=== PATIENT | female | born 1940 | race Caucasian/White ===

== ENCOUNTER 2024-10-10 14:17 | Outpatient (CLI) | payer MEDICARE, BC, SELFPAY ==
--- NOTE | ~2024-10-10 | DEXA_ITS ---
Bone Density Report Name: LAURA VERMA Age: 84 Sex: Female Ethnicity: White Date of : 1940 Indication: postmenopausal; screening for osteoporosis; parental hip fracture; height loss; Referring Provider: EVERETT, YARI Study: Bone densitometry was performed. Exam Date: October 10, 2024 Accession number: [id number] Bone Density: Region BMD T-score Z-score Classification AP Spine(L1-L4) 1.075 0.3 3.1 Normal Femoral Neck (Left) 0.769 -0.7 1.8 Normal Total Hip (Left) 0.863 -0.6 1.7 Normal Femoral Neck (Right) 0.654 -1.8 0.8 Osteopenia Total Hip (Right) 0.748 -1.6 0.7 Osteopenia Total Hip Mean 0.806 -1.1 1.2 Osteopenia World Health Organization criteria for BMD impression classify patients as: Normal (T-score at or above -1.0), Osteopenia (T-score between -1.0 and -2.5), or Osteoporosis (T-score at or below -2.5). 10-year Fracture Risk(1): Major Osteoporotic Fracture 24% Hip Fracture 15% Reported Risk Factors: [place] (), Neck BMD=0.654, BMI=35.9, parental fracture (1) FRAX(R) Version 3.08. Fracture probability calculated for an untreated patient. Fracture probability may be lower if the patient has received treatment. Clinical Information Provided by Patient: Parent has had a hip fracture Has used the following medications: Vitamin D Patient maximum height was 63 Menopause Age: 56 No regular weight bearing exercise Drinks caffeinated beverages Onset of menses at age 8 Number of children 3 Impression: The patient has low bone mass, based on the Right Femoral Neck T-score. The patient has an estimated ten-year risk of hip fracture of 15% and an estimated ten-year risk of major fracture of 24%, based on the WHO FRAX algorithm. The patient has risk factors, including: parental hip fracture. Discussion: BONE DENSITY IS LOW AT ONE OR MORE SKELETAL SITES. THE PATIENT'S BMD AND CLINICAL RISK FACTORS CONTRIBUTE TO THIS PATIENT'S HIGH RISK OF FRACTURE. This patient's lowest T-score is low at one or more skeletal sites. It meets the World Health Organization's (WHO) criteria for ?low bone mass? (T-score between -1.0 and -2.5). The patient's 10-year risk of hip fracture and 10 year risk of a major osteoporotic fracture as calculated by FRAX exceeds the threshold where pharmacological therapy is recommended by the National Osteoporosis Foundation (NOF). However, all treatment decisions require clinical judgment and consideration of individual patient factors, including patient preferences, comorbidities, previous drug use, risk factors not captured in the FRAX model (e.g., frailty, falls, vitamin D deficiency, increased bone turnover, interval significant decline in bone density) and possible under or overestimation of fracture risk by FRAX. The patient should follow a healthful lifestyle (good nutrition with adequate calcium and vitamin D, and appropriate weight-bearing exercise). Follow-Up: Consider a repeat BMD and Vertebral Fracture Assessment (VFA) exam in 2 years or sooner if medically necessary, to reassess this patient's status. Reported by: MARIVEL on 10/10/2024 3:09:00 PM. Reviewed, dictated and finalized at location A.
--- OUTSIDE RECORDS SUMMARY | 2024-10-10 16:13 | XMS_ITS | Clinical Summary ---
Author Organization [facility] Address [address] [place] [address] Care Team Providers Care Primary Teaching Assistant Name Role Phone Harshal Mcclain MD Unavailable [phone] Miguelina Romero RN Unavailable Unavailable Galdino Maldonado MD Primary Care Provider Source Comments [facility],non-owned Affiliates and Associated Physician Practices is amultiple site organization consisting of ambulatory clinics and hospital sitesin [place], [place], [place] and [place]. This disclosure is being madepursuant to the Care Everywhere program and may not contain all information available regarding this patient. Last updated 18.[facility] Allergies Active Allergy Reactions Criticality Noted Date Comments Prednisone 07/17/2010 I get wacky Medications * Be aware that medications may not be up to date on this document. Alwaysverify current medications with the patient. vitamin D, cholecalciferol , 2000 UNIT tablet Take 1 Tab by mouth once daily. 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 Gastroesophageal reflux disease without esophagi tis 04/28/2016 Gastritis, bile acid reflux 04/25/2015 Tachycardia 01/02/2015 Vitamin D deficiency 04/06/2013 Declined flu shot 04/02/2011 Other screening mammogram ord'd 07/17/10, 10/08/11 , 07/17/2010 Procedure refused 03/20/2010 Overview (03/20/2010): Declined flu shot Noncompliance with medication regimen 11/21/2009 Osteopenia -1.0 07/25/2009 07/26/2009 Vaccination not carried out because of patient r efusal 03/06/2009 Overview (03/06/2009): Declined flu shot Depression, endogenous 05/29/2008 Insomnia 05/29/2008 Mixed hyperlipidemia 05/29/2008 Screen for Colon Cancer 1993 , 1995, rec'd 03/2008 (Sarahi), 03/20/10 05/29/2008 Encounters Date Type Department Care Team Description 09/21/2024 Patient Outreach [facility] - Care Coordination [address] [place] [address] Matilde Tang Outreach Preventive Care from Last 3 Months Immunizations Immunization Administration Dates Next Due MODERNA SARS-COV-2 COVID-19 VACCINE 0.25ML 01/01,05/20/2021 PNEUMOCOCCAL PPSV23 04/02/2011 Pneumococcal Pcv13 Conj 10/25/2014 Family History Medical History Relation Name Comments Heart Disease Father Relation Name Status Comments Father Social History Tobacco Use Types Packs/Day Years Used Date Smoking Tobacco: Former Cigarettes 0.8 58 0 12/25/1956 - 12/25/2014 Smokeless Tobacco: Never Tobacco Cessation:Counseling Given: No Alcohol Use Standard Drinks/Week Comments No 0 (1 standard drink = 0.6 oz pur e alcohol) Comments No Sex and Gender Information Value Date Recorded Sex Assigned at Not on file Legal Sex Female 6:41 AM TRACTOR TRAILER TECHNICIAN Gender Identity Not on file Sexual Orientation Not on file Last Filed Vital Signs Vital Sign Reading Time Taken Comments Blood Pressure 124/82 05/04/2019 10:32 AM TRACTOR TRAILER TECHNICIAN Pulse 72 05/04/2019 10:32 AM TRACTOR TRAILER TECHNICIAN Temperature 37.1 C (98.7 F) 01/03/2015 4:05 PM CDT Respiratory Rate 14 05/04/2019 10:32 AM TRACTOR TRAILER TECHNICIAN Oxygen Saturation 90% 01/03/2015 4:05 PM CDT Inhaled Oxygen Concentration - - Weight 92.5 kg (204 lb) 05/04/2019 10:32 AM TRACTOR TRAILER TECHNICIAN Height 160 cm (5' 3 ) 05/04/2019 10:32 AM TRACTOR TRAILER TECHNICIAN Body Mass Index 36.14 05/04/2019 10:32 AM TRACTOR TRAILER TECHNICIAN Plan of Treatment Health Maintenance Due Date Last Done Comments DTAP/TDAP/TD VACCINES (1 - Tdap) 1959 ZOSTER VACCINE (1 of 2) 1989 Respiratory Syncytial Virus (RSV) Vaccine Pt: or over 60 yrs (1 - 1-dose 75+ series) 2014 COVID-19 VACCINE ( season) 2024 04/24/2022, 01/01/2022, 05/20/2021, Additional history exists DEPRESSION SCREENING 06/22/2024 INFLUENZA VACCINE (Season Ended) 2025 BONE DENSITY TESTING Completed 07/25/2009 PNEUMOCOCCAL VACCINE 50+ Completed 10/25/2014, 03/22 HEPATITIS B VACCINE Aged Out No longe r eligible based on patient's age to complete this topic HIB VACCINE Aged Out No longer eligi ble based on patient's age to complete this topic HPV VACCINE Aged Out No longer eligi ble based on patient's age to complete this topic MENINGOCOCCAL (Group B) VACCINE SHARED DECISION-MAKING Aged Out No longer eligible based on patient's age to complete this topic MENINGOCOCCAL GROUPS A/C/Y/W VACCINE Aged Out No longer eligible based on patient's age to complete this topic Goals Goal Patient Goal Type Associated Problems Recent Progress Patient-Stated? Author Quit smoking / using tobacco Lifestyle On track( 016 9:12 AM CDT) No Jessica Alatorre Insurance [employer] Advance Directives * Full Code (Latest Code Status on File) Date Activated Date Inactivated Comments 01/02/2015 3:43 PM 01/03/2015 7:39 PM * Full Code Date Activated Date Inactivated Comments 01/02/2015 3:28 PM 01/02/2015 3:43 PM Care Teams Primary Teaching Assistant Relationship Specialty Start Date End Date Galdino Maldonado MD [address] [phone] PCP - General Internal Medicine 09/21/24 Harshal Mcclain MD [address] [place] [address] 02/01/10 Miguelina Romero RN [address] [place] [address] Jumpbasting Armhole Baster 01/03/15
== END 2024-10-10 14:18 | disposition home or self-care (01) ==
LOC: ANHIMG 14:20
PROVIDERS: PCP Internal Medicine; Visit Provider Internal Medicine
DX: M81.0 Age-related osteoporosis without current pathological fracture (principal); M85.89 Other specified disorders of bone density and structure, multiple sites; Z13.820 Encounter for screening for osteoporosis
CPT/HCPCS: 77080

== ENCOUNTER 2025-02-08 13:28 | Outpatient (CLI) | payer MEDICARE, BC, SELFPAY ==
--- OUTSIDE RECORDS SUMMARY | 2025-02-08 13:50 | XMS_ITS | Clinical Summary ---
Author Organization [facility] Address [address] [place] [address] Care Team Providers Care Associate Professor Of Physics Name Role Phone Harshal Mcclain MD Unavailable [phone] Miguelina Romero RN Unavailable Unavailable Galdino Maldonado MD Primary Care Provider Source Comments [facility],non-owned Affiliates and Associated Physician Practices is amultiple site organization consisting of ambulatory clinics and hospital sitesin [place], [place], [place] and [place]. This disclosure is being madepursuant to the Care Everywhere program and may not contain all information available regarding this patient. Last updated 18.[facility] Allergies Active Allergy Reactions Criticality Noted Date [...] Encounters Date Type Department Care Team Description 01/20/2025 Patient Outreach [facility] - Care Coordination [address] [place] [address] Rachel Landry Outreach Preventive Care from Last 3 Months [...] on file Legal Sex Female 6:41 AM NAIL TECHNICIAN Gender Identity Not on file Sexual Orientation Not on file Last Filed Vital Signs Vital Sign Reading Time Taken Comments Blood Pressure 124/82 05/04/2019 10:32 AM NAIL TECHNICIAN Pulse 72 05/04/2019 10:32 AM NAIL TECHNICIAN Temperature 37.1 C (98.7 F) 01/03/2015 4:05 PM CDT Respiratory Rate 14 05/04/2019 10:32 AM NAIL TECHNICIAN Oxygen Saturation 90% 01/03/2015 4:05 PM CDT Inhaled Oxygen Concentration - - Weight 92.5 kg (204 lb) 05/04/2019 10:32 AM NAIL TECHNICIAN Height 160 cm (5' 3) 05/04/2019 10:32 AM NAIL TECHNICIAN Body Mass Index 36.14 05/04/2019 10:32 AM NAIL TECHNICIAN Plan of Treatment Health Maintenance Due Date Last Done Comments DTAP/TDAP/TD VACCINES (1 - Tdap) 1958 ZOSTER VACCINE (1 of 2) 1989 Respiratory Syncytial Virus (RSV) Vaccine Pt: or over 60 yrs (1 - 1-dose 75+ series) 2014 COVID-19 VACCINE ( season) 2024 04/24/2022, 01/01/2022, 05/20/2021, Additional history exists DEPRESSION SCREENING 06/22/2024 INFLUENZA VACCINE (#1) 2025 BONE DENSITY TESTING Completed 07/25/2009 PNEUMOCOCCAL [...] 9:12 AM CDT) No Jessica Alatorre Insurance [employer] Advance Directives * Full Code (Latest Code Status on File) Date Activated Date Inactivated Comments 01/02/2015 3:43 PM 01/03/2015 7:39 PM * Full Code Date Activated Date Inactivated Comments 01/02/2015 3:28 PM 01/02/2015 3:43 PM Care Teams Associate Professor Of Physics Relationship Specialty Start Date End Date Galdino Maldonado MD [address] [phone] PCP - General Internal Medicine 09/21/24 Harshal Mcclain MD [address] [place] [address] 02/01/10 Miguelina Romero RN [address] [place] [address] Lead Manufacturing Technician 01/03/15
--- NOTE | 2025-02-08 14:15 | NEURO_ITS ---
Impression: # Complains of numbness of right hand. # Right Carpal Tunnel Syndrome. # No Ulnar Neuropathy, # Needle/EMG exam mildly neurogenic in right APB. Nerve Conduction Studies ?Stim Site NR Peak (ms) P-T Amp (?V) Site1 Site2 Delta-P (ms) Dist (cm) Rakesh (m/s) Right Median Anti Sensory (2-3nd Digit) Wrist ? 4.9 18.7 Wrist 2-3nd Digit 4.9 14.0 29 Wrist ? 5.0 11.5 Wrist 2-3nd Digit 4.9 14.0 29 Right Radial Anti Sensory (Base 1st Digit) Wrist ? 2.1 19.8 Wrist Base 1st Digit 2.1 0.0 Right Ulnar Anti Sensory (5th Digit) Wrist ? 2.2 48.1 Wrist 5th Digit 2.2 14.0 64 ?Stim Site NR Onset (ms) O-P Amp (mV) Site1 Site2 Delta-0 (ms) Dist (cm) Rakesh (m/s) Right Median Motor (Abd Poll Brev) Wrist ? 4.5 4.8 Elbow Wrist 4.6 25.0 54 Elbow ? 9.1 4.9 Right Ulnar Motor (Abd Dig Minimi) Wrist ? 3.0 4.7 A Elbow Wrist 4.0 26.0 65 A Elbow ? 7.0 5.5 B Elbow Wrist 3.2 19.0 59 B Elbow ? 6.2 3.4 F Wave Studies ?NR F-Lat (ms) L-R F-Lat (ms) Right Median (Mrkrs) (Abd Poll Brev) ? 26.73 Right Ulnar (Mrkrs) (Abd Dig Min) ? 25.63 Electromyography ?Side Muscle Nerve Root Ins Act Fibs Amp Dur Recrt Comment Right 1stDorInt Ulnar C8-T1 Nml Nml Nml Nml Nml Right Ext Indicis Radial (Post Int) C7-8 Nml Nml Nml Nml Nml Right Ext Digitorum Radial (Post Int) C7-8 Nml Nml Nml Nml Nml Right BrachioRad Radial C5-6 Nml Nml Nml Nml Nml Right PronatorTeres Median C6-7 Nml Nml Nml Nml Nml Right Abd Poll Brev Median C8-T1 Nml Nml Nml Nml Nml Right ABD Dig Min Ulnar C8-T1 Nml Nml Nml Nml Nml Right FlexPolLong Median (Ant Int) C7-8 Nml Nml Nml Nml Nml Right Abd Poll Long Radial (Post Int) C7-8 Nml Nml Nml Nml Nml
== END 2025-02-08 13:29 | disposition home or self-care (01) ==
PROVIDERS: PCP Internal Medicine; Visit Provider Orthopaedic Surgery
DX: G56.01 Carpal tunnel syndrome, right upper limb (principal)
CPT/HCPCS: 95886; 95909